=== PATIENT | female | born 1955 | race Caucasian/White ===

== ENCOUNTER → 2020-11-15 08:56 | Outpatient (CLI) | payer MEDICARE, MEDICAID, SELFPAY ==
[2020-11-15 11:31] LABS: COVID19 -Nasal RAPID Negative (Negative)
== END ==
PROVIDERS: PCP Internal Medicine; Visit Provider Physician Assistant
DX: Z20.822 Contact with and (suspected) exposure to COVID-19 (principal); Z01.812 Encounter for preprocedural laboratory examination
CPT/HCPCS: 87635; C9803

== ENCOUNTER → 2020-11-18 14:02 | Outpatient (CLI) | payer MEDICARE, MEDICAID, SELFPAY ==
--- NOTE | 2020-11-20 05:20 | DI.NM.S_ITS ---
DATE OF SERVICE: PROCEDURE: Pharmacological perfusion study. INDICATIONS: Chest pain with underlying hypertension. RADIOPHARMACEUTICAL: 27.1 millicurie technetium-99m Myoview IV was injected at stress and 25.7 millicurie technetium-99m Myoview IV was injected at rest. CARDIAC STRESS: The patient underwent IV Lexiscan perfusion study under the supervision of an attending staff. The patient received IV Lexiscan as per protocol. Remained hemodynamically stable. Baseline rhythm was sinus. During stress, no convincing ischemic changes seen. No significant arrhythmias seen. The patient felt flushing and chest tightness after Lexiscan injection. RAW DATA: There is a breast shadow seen. GATED STUDY: Stress LV ejection fraction 87 percent without any obvious wall motion abnormalities. Resting end-diastolic volume 98 mL. TID ratio 0.90, which is within normal limits. Lung/heart ratio 0.33 which is within normal limits. MYOCARDIAL PERFUSION SCAN: Stress supine and resting supine images were compared to each other. There are no stress prone images. Stress supine and resting supine images revealed normal myocardial perfusion. CONCLUSION: This is a normal myocardial perfusion study. Preserved left ventricular function. Overall, this is a low-risk myocardial perfusion scan. Mayo German - JYOTSNA/jez/gabby doc#: [id number]/job#: [id number] dd: 11/19/2020 17:34:00 dt: 11/20/2020 04:44:00 DICTATING /COPIES TO: Cailin Perales MD COPIES MNE: KAREN;
== END ==
PROVIDERS: PCP Internal Medicine; Referring Provider Internal Medicine; Visit Provider Internal Medicine
DX: R07.89 Other chest pain (principal); I10 Essential (primary) hypertension
CPT/HCPCS: 78452; 93017; A9502; J2785

== ENCOUNTER → 2023-03-17 10:21 | Outpatient (CLI) | payer MEDICARE, MEDICAID, SELFPAY ==
--- NOTE | 2023-03-17 10:23 | DI.RAD.S_ITS ---
PROCEDURE: FL BARIUM SWALLOW W SPEECH INDICATIONS: Dysphagia COMPARISON: None. TECHNIQUE: Examination was conducted in conjunction with speech pathology per standard protocol. In the lateral projection, filming was performed of the patient swallowing. AP projection filming may also be performed with patient swallowing. COMPARISON: FINDINGS: Function: The oral preparatory phase appears normal, with proper containment. The subsequent oral propulsive phase, pharyngeal phase, and esophageal phase of swallowing also appear normal with all proffered substances. No laryngotracheal penetration or aspiration. No pathologic vallecular pooling. 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 No cervical esophageal webs. No Zenker's diverticulum. No strictures. IMPRESSION: No laryngeal tracheal penetration or aspiration. 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 Please refer to the dedicated speech therapy swallowing evaluation report which will be independently generated. Dictated by: Ming Singleton M.D. on 03/17/2023 at 12:30 Approved by: Ming Singleton M.D. on 03/17/2023 at 12:31
--- NOTE | 2023-03-17 12:23 | ST.SWALLOW ---
Visit Care Team Role Provider Type Zackary Rivera MD Attending Provider Non-Staff Primary Care Provider Referring Provider Specialty: Internal Medicine Address: [address] [place] [address] [address], [place], [address] Email: Modified Barium Swallow Study ROOFER ASSISTANT Modified Barium Swallow Study Start: 03/17/23 11:20 Freq: Status: Active Protocol: Document 03/17/23 11:20 LNK (Rec: 03/17/23 12:22 LNK [id number]) Modified Barium Swallow Study Total Time Visit Start Time 10:45 Visit Stop Time 11:15 Total Visit Minutes [address] Zackary Rivera Reason for Referral dysphagia Setting Setting Outpatient Care Patient Information Identification Type Name,Date of Patient History Pt is a 67 year old female seen for a Modified Barium Swallow Study. Pt c/o difficulty swallowing with a sense of globus near the sternal notch. She reported foods and liquids getting stuck when she eats. She will, at times, cough up pieces of undigested foods. Pt reported that she had COVID in 2019 and was hospitalized for an extended period of time . She noted that since then her voice has been hoarse to aphonic and she has had difficulty swallowing. Pt stated a history of GERD, but was unsure of formal diagnosis or medication. Pt was seen for vocal hoarseness assessment and therapy therapy in 2020. At that time she c/o intermittent dysphagia. Pt attended one voice therapy session, canceling remaining appointments. Subjective Observations Pt is confined to a wheel chair secondary to severe obesity and difficulty with standing and/or walking. Pt has O2 supplementation via nasal cannula. Pt was assisted into and out of the fluoroscopy chair by staff. The oral and pharyngeal cavities were observed with the vocal folds visible. The upper trachea was minimally visible. Patient Positioning Position View Lateral Imaging Lateral View Textures Administered Trials Presented Thin Liquid via Spoon (IDDSI 0 ),Thin Liquid via Cup (IDDSI 0 ),Thin Liquid via Straw (IDDSI 0),Extremely Thick Liquid via Spoon (IDDSI 4),Regular ( IDDSI 7) The IDDSI Framework Protocol: IDDSI.1 Oral Impairment Source: The Modified Barium Swallow Impairment Profile (MBSImP??) Lip Closure Interlabial escape; no progression to anterior lip Tongue Control During Bolus Hold Cohesive bolus between tongue to palatal seal Bolus Preparation/Mastication Timely & efficient chewing & mashing Bolus Transport/Lingual Motion Delayed initiation of tongue motion Oral Residue Trace residue lining oral structures,Residue collection on oral structures Location Tongue,Lateral sulci Initiation of Pharyngeal Swallow Bolus head at pyriforms Additional Oral Impairment Observations OME and DKS were informally observed and noted to be WFL. Dentition natural with missing upper/lower teeth noted. Pharyngeal Impairment Source: The Modified Barium Swallow Impairment Profile (MBSImP??) Soft Palate Elevation No bolus between soft palate & pharyngeal wall Laryngeal Elevation Part.sup.move.thyroid cart/ part.approx.arytenoids to epiglot.petiole Anterior Hyoid Excursion Partial anterior movement Epiglottic Movement Complete inversion Laryngeal Vestibular Closure Complete; no air/contrast in laryngeal vestibule Pharyngeal Stripping Wave Present - complete Pharyngoesophageal Segment Opening Complete distention & complete duration; no obstruction of flow Tongue Base Retraction Narrow column of contrast/air betwn tongue base & post. pharyngeal wall Pharyngeal Residue Collection of residue within/ on pharyngeal structures Location Valleculae Additional Pharyngeal Impairment Reduced tongue base retraction Observations with partially reduced hyolaryngeal elevation were observed. The epiglottis inversion was complete with a good seal of the laryngeal vestibule observed. Pt demonstrated no difficulty with liquid or solids trials. Pharyngeal pooling was observed in the valeculla following the solid (e.g., cookie with barium) trial. No penetration or aspiration were seen. However, it should be noted that due to the p's size and the limitations of the fluoroscopy system, there was limited view of the trachea immediately below the vocal folds. A/P View The IDDSI Framework Protocol: IDDSI.1 A/P View Observations Additional A-P Observations AP position/observations were not obtained due to pt's inability to stand Clinical Impressions Findings For the oral and pharyngeal phases of swallowing, the pt demonstrated functioning WFL. It was not possible to view the esophageal phase of pt's swallow. Pt described a globus sensation at the area near the sternal notch. This has been associated with esophageal phase dysfunction. If pt continues to experience a globus sensation when swallowing, a GI referral is recommended. Additionally, if pt continues to c/o vocal hoarseness, referral to ENT is recommended. Patient Appropriate for Therapy No Recommendations Diet Comments No change in pt diet is recommended at this time
== END ==
PROVIDERS: PCP Internal Medicine; Referring Provider Internal Medicine; Visit Provider Internal Medicine
DX: R13.10 Dysphagia, unspecified (principal)
CPT/HCPCS: 74230; 92611

== ENCOUNTER → 2023-09-10 08:00 | Outpatient (CLI) | payer MEDICARE, MEDICAID, SELFPAY ==
--- NOTE | 2023-09-10 08:01 | DI.ECHO.S_ITS ---
[facility] : : [id number] : [place] : : [id number] : : Phone: [phone] Echocardiogram Report + + :Name: JOSE DAVID SAN Study Date: 09/10/2023 Height: 63 in : :[facility] ReadingLocation: Weight: 380 lb : : Gender: Female BSA: 2.5 m2 : :: 1955 Age: 68 yrs BP: 150/77 mmHg: :Reason For Study: HYPERTENSION : :Ordering Physician: JAROCHO, : :MARLI Performed By: Elba Donohue : :Referring: MARLI AVENDAÑO : + + Interpretation Summary The ejection fraction is estimated to be 60-65%. Grade I diastolic dysfunction. The right ventricle is normal in size and function. Right ventricular systolic pressure is estimated to be 30 mmHg plus the clinically estimated CVP which cannot be estimated on this exam. No significant valvular abnormality. Procedure: A two-dimensional transthoracic echocardiogram with color flow and Doppler was performed. The study quality was technically difficult. There is no prior echocardiogram noted for this patient. The patient was in sinus rhythm with heart rates between 75-83 bpm during the exam. Left Ventricle: The left ventricle is normal in size. Left ventricular wall thickness is borderline increased. The ejection fraction is estimated to be 60-65%. There are no obvious focal wall motion abnormalities noted but poor endocardial definition reduces the sensitivity for the detection of such. Grade I diastolic dysfunction. Right Ventricle: The right ventricle is normal in size and function. Atria: The left atrial size is normal. Right atrial size is normal. There is no Doppler evidence for an interatrial shunt. Mitral Valve: The mitral valve is normal in structure and function. There is no mitral regurgitation noted. Aortic Valve: The aortic valve is not well visualized. The aortic valve is grossly normal. There is no aortic valve stenosis. No aortic regurgitation is present. Tricuspid Valve: The tricuspid valve is normal in structure and function. There is trace tricuspid regurgitation. Right ventricular systolic pressure is estimated to be 30 mmHg plus the clinically estimated CVP which cannot be estimated on this exam. Pulmonic Valve: The pulmonic valve is not well seen, but is grossly normal. There is no pulmonic valvular regurgitation. Great Vessels: The aortic root is normal size. The dimensions of the ascending aorta are normal. The inferior vena cava was not visualized. Pericardium/ Pleura There is no pericardial effusion. There is no pleural effusion. MMode/2D Measurements & Calculations LVIDd: 5.2 cm LVOT diam: 2.0 cm LVIDs: 3.4 cm Ao root diam: 3.0 cm FS: 34.3 % asc Aorta Diam: 3.3 cm IVSd: 0.82 cm Ao Arch Diam (Prox Trans): 2.7 cm LVPWd: 1.2 cm LV garibay. diameter/BSA (cm/m^2): 2.0 LV sys. diameter/BSA (cm/m^2): 1.3 LA A2 area: 14.6 cm2 RA long axis: 4.8 cm LA A4 area: 12.5 cm2 RA area: 12.3 cm2 LA length (vol): 4.7 cm RA vol: 27.0 ml LA vol: 32.8 ml RA : 10.6 ml/m2 LA vol index: 12.9 ml/m2 RVD1 (basal): 3.7 cm TAPSE: 2.1 cm Doppler Measurements & Calculations Ao V2 max: 155.0 cm/sec LVOT Max Earl: 121.6 cm/sec Ao V2 mean: 114.5 cm/sec LV V1 max P.9 mmHg Ao max P.6 mmHg LV V1 VTI: 28.5 cm Ao mean P.7 mmHg HIGINIO(I,D): 2.4 cm2 Ao V2 VTI: 35.7 cm HIGINIO(V,D): 2.4 cm2 sev ratio: 0.80 HIGINIO indexed to BSA (cm^2/m^2): 0.96 MV E max earl: 83.8 cm/sec TR max earl: 272.7 cm/sec MV A max earl: 76.0 cm/sec TR max P.7 mmHg MV E/A: 1.1 PA V2 max: 101.0 cm/sec Med Peak E' Earl: 5.7 cm/sec PA V2 mean: 73.1 cm/sec E/E' med: 14.6 PA mean P.3 mmHg Lat Peak E' Earl: 8.8 cm/sec PA pr(Accel): 37.9 mmHg E/E' lat: 9.5 E/e' average: 12.1 MV dec time: 0.20 sec SV(LVCLEO): 87.5 ml Reading Physician:ASHVIN
== END ==
PROVIDERS: PCP Internal Medicine; Referring Provider Internal Medicine; Visit Provider Internal Medicine
DX: I10 Essential (primary) hypertension (principal)
CPT/HCPCS: 93306